=== PATIENT | female | born 1990 | race Two or more races ===

== ENCOUNTER 2025-01-26 08:13 | Emergency (ER) | payer BC, MEDICAID, OTHER ==
[~2025-01-26] VITALS: Ht 167.6 cm; Wt 102.5 kg
[2025-01-26 08:53] VITALS: TEMP 97.6
[2025-01-26 09:06] VITALS: PULSE 90; RESP 12; O2SAT 99
[2025-01-26 09:43] LABS: Urine Protein, UAD Negative (Negative)
--- NOTE | 2025-01-26 10:51 | ED.PDOC ---
SERVICE CENTER SPECIALIST HPI Comments HPI: Reneamirnamark 34 y.o female presents to the ED for a reevaluation of her . Patient reports approximately five weeks gestation, the patient was seen by her SERVICE CENTER SPECIALIST five days ago. The SERVICE CENTER SPECIALIST noted a normal exam but expressed suspicion of a possible ectopic , which could not be r/o at the time. The patient was consequently referred to ER ([facility]), where an evaluation included an HCG level and ultrasound. The US findings were too early to visualize a fetus. The patient has a history of ; her first child was conceived via fertility treatment. She is taking her prenatals visit was on 01/24/25: HCG level of 3700 Initial Vitals BP: 144/85 HR: 81 O2: 99% RA Temp: 98.7 F Past Medical History: Denies Past Surgical History: cholecystectomy Social History: Denies ETOH, smoking, and drug use. Allergies: Denies ENZENBACHER: HPI: Poor Historian. five weeks gestation presents to the emergency department to recheck level beta-hCG and pelvic ultrasound. She had one done two days ago at [facility]. Her beta-hCG levels was 3700. Ultrasound was nonconclusive patient has an established OB Gyne doctor already and is taking . Denies any other symptoms. REVIEW OF SYSTEMS: CONSTITUTIONAL: Denies acute: fever, diaphoresis, chills, generalized weakness. HEAD: Denies acute: headache, photophobia Eyes: Denies acute: Double vision, vision loss, eye pain, eye discharge. EARS: Denies acute: tinnitus, hearing loss, ear discharge, ear pain, THROAT: Denies acute: sore throat, swelling, difficulty swallowing , pain with swall owing, change in voice. NECK: Denies acute: neck pain, neck swelling, stiff neck. HEART: Denies acute : chest pain, palpitations, LUNGS: Denies acute: SOB, wheezing, cough, hemoptysis ABDOMEN: Denies acute: abdominal pain, Nausea, Vomiting, diarrhea, melena , hematemesis, hematochezia SKIN: Denies acute: rash, redness, lesions, itchiness. EXTREMITIES: Denies acute: calf pain, numbness, tingling, weakness, denies pain in extremity. Denies acute: Low back pain. Neuro: Denies acute: focal neurological deficit, motor or sensory focal neurological deficit, tremors, seizure like activity, confusion, dizziness, change in mental status, loss of bowel or bladder function, cauda equina like symptoms. : Denies acute: dysuria, hematuria, flank pain, increase in urinary frequency. PSYCH: Denies acute: hallucination, suicidal ideation, homicidal ideation. FEMALE: Denies acute: abnormal vaginal bleeding, foul odor, unusual discharge. PHYSICAL EXAM: General: -----no---acute distress, awake and alert. Head: normocephalic, atraumatic. Neck: supple, trachea is midline, no swelling. Throat: Normal phonation. Eyes:, no erythema, no purulent discharge, no proptosis, no icterus. Heart: regular rate, regular rhythm, no significant murmur appreciated. Lungs: no apparent respiratory distress, Able to speak in full sentences. No wheezing, no rhonchi, no crackles. No stridors Clear to auscultation bilaterally. Abdomen: non tender to palpation, non distended, soft, no guarding, no rebound, + bowel sounds. Neuro: Awake, Alert, oriented to name, self, situation, follows commands GCS=15. Speech is normal. Skin: no petechia, no purpura, no cyanosis, non-pale, not jaundice. Lower extremities: --no - Pitting edema no deformity, no focal swelling, no calf TTP. Makes eye contact. moves all four extremities. Face: no apparent facial droop. Ambulating in the ED independently. ED COURSE: DISCLAIMER: This medical document was created using an electronic medical record system with voice recognition software and computerized dictation system. Although this document has been carefully reviewed, there might still be some phonetic and typographical errors. Occasional wrong-word or "sound-alike" substitutions may have occurred due to the inherent limitations of voice recognition software. These areas are purely typographical due to imperfections of the software programs and do not reflect any compromise in the patient's medical care. Please read the chart carefully and recognize, using context, where these substitutions have occurred. Chief Complaint: Time Seen by MD: 10:40 Reviewed Notes: Medications, Allergies Allergies: Coded Allergies: NO KNOWN ALLERGIES (Unverified , 11/05/14) Home Meds Active Scripts Cephalexin Monohydrate (Cephalexin) 500 Mg Cap, 500 MG PO Q8HP PRN for 5 Days, #15 CAP Prov:MEETA CORDOBA DO 01/26/25 Information Source: Patient Mode of Arrival: Ambulatory Past Medical History PAST MEDICAL HISTORY: Denies Surgical History: Cholecystectomy PHYSICIAN SCRIBE History: No Pertinent PHYSICIAN SCRIBE History Social History Smoker: Non-Smoker Alcohol: Denies ETOH Use Drugs: Denies Drug Use Lives In: Home Was a procedure done? Was a procedure done?: No Differential Diagnosis (PHYSICIAN SCRIBE) Vaginal Bleeding: Other (Differential diagnosis includes but not limited to DU B, menorrhea, metromenorrhagia, neoplasm, coagulopathy,, trauma, miscarriage, placenta previa, placental abruption, ), N/A Comments Ectopic X-Ray, Labs, Meds, VS Vital Signs Date Time Temp Pulse Resp B/P (MAP) Pulse Ox O2 Delivery O2 Flow Rate FiO2 01/26/25 10:55 66 12 130/79 (96) 01/26/25 09:06 90 12 99 Room Air* 0 21 01/26/25 08:53 97.6 90 12 127/83 (98) 99 97.6 01/26/25 08:15 98.8 81 18 144/85 99 98.8 Lab Test 01/26/25 09:14 Range/Units Urine Color Light-yellow Yellow Urine Clarity Clear Clear Urine pH 6.0 5.0-9.0 Urine Specific [place] 1.007 1.001-1.035 Urine Protein Negative Negative Urine Ketones 1+ H Negative Urine Blood Negative Negative /uL Urine Nitrite Negative Negative Urine Bilirubin Negative Negative Urine Urobilinogen Normal Negative mg/dL Urine Leukocyte Esterase Negative Negative /uL Urine RBC 1 0 - 4 /hpf Urine Microscopic WBC < 1 0-5 /HPF Urine Squamous Epithelial Cells Few <5 /hpf Urine Bacteria Few H None Seen /hpf Urine Glucose Normal Normal mg/dL Urine Test Positive Negative Beta HCG, Quantitative 7013.0 H 1.5-4.2 mIU/mL [facility] [id number] [place] [id number] Ph: [phone] DIAGNOSTIC IMAGING Diagnostic Imaging Report : [id number] Signed PATIENT: FORREST NAGYACCT: [id number] UNIT: [id number] : 1990 LOC: ER ROOM / BED: / AGE / SEX: 34 / F ADM STATUS: REG ER SERVICE [id number] ORDERING PHYSICIAN: MEETA CORDOBA DO PROCEDURE(s): OB4US - OB ULTRASOUND COMP LESS 14WKS REASON: POSS ECTOPIC PREG. ORDER NUMBER(s): [id number], ACCESSION NUMBER(s): [id number] CLINICAL HISTORY: Possible ectopic . COMPARISON: None TECHNIQUE: Transvaginal and transabdominal grayscale sonographic imaging of the uterus and ovaries was performed, assisted by color Doppler technique. Duplex Doppler ultrasound of both ovaries was also performed. FINDINGS: The uterus measures 6.8 x 6.0 x 5.4 cm. There is an anechoic structure in the endometrium measuring up to 0.73 cm in diameter, possible gestational sac. No yolk sac or pole identified at this time. Possible arcuate or septate uterus, not well evaluated on this exam. Small amount of free fluid in the cul-de-sac. Right ovary measures 3.9 x 1.9 x 2.7 cm. Arterial and venous blood flow demonstrated. Left ovary measures 2.6 x 1.8 x 1.9 cm. Arterial and venous blood flow demonstrated. IMPRESSION: 1. Intrauterine gestational sac with no yolk sac or pole identified at this time. Correlate with clinical findings, serial beta HCG levels, and follow- up ultrasound recommended. 2. No ectopic visualized, although can not be completely excluded in the appropriate clinical setting. 3. Possible arcuate uterus or septate uterus, not well evaluated on this exam. ATED BY: SAI MCMAHON DO DICTATED DATE/TIME: 01/26/25 112 SIGNED BY: SAI MCMAHON DO SIGNED DATE/TIME: 01/26/251121 CC: Time of 1ST Reevaluation: 10:44 Reevaluation 1ST: Unchanged Patient Education/Counseling: Diagnosis, Treatment Family Education/Counseling: No Family Present Comments MDM: patient presented with the above HPI.---evaluation for ectopic ---workup was initiated. patient was found with the above mentioned diagnosis. the following medications were ordered: please refer to order lists of meds and tests obtained by myself Dr. Cordoba. Patient ED course and VS have been stabilized. Patient has been reassessed in the ED and remained in a stable condition. Pertinent incidental findings were discussed with the patient and/or family. Patient/family voices understanding and is agreeable with plan. Patient has been observed in the ED adequate length of time to insure improvement/stability. Escalation of care considered: Consideration of escalation to observation or admission Patient was DISCHARGED home in a stable condition. All the reports of any imaging studies that were ordered by myself were reviewed by myself. Departure 1 Departure Time of Disposition: 10:55 Impression: Primary Impression: Encounter for assessment for suspected ectopic Additional Impression: UTI in Disposition: HOME / SELF CARE / HOMELESS Condition: Stable Additional Instructions: Additional instructions: Please read all instructions provided in this packet carefully. You MUST follow-up with your primary care/family doctor in 1 to 2 days. If you are unable to see your primary care/family doctor, please return to our emergency room for re-assessment and re-evaluation in 1 to 2 days. Return to the emergency room here in our facility or to the nearest ER [facility] if your symptoms change or worsen. CONSULTATIONS: you MUST Follow-up for consultation as soon as possible with: ----OB Gyne doctor in 1-2 days. You MUST call the consultants office yourself to make an appointment. You may need to arrange that through your insurance and/or your primary/family doctor. If you are unable to see the unix consultant in 1 to 2 days, you must return to our emergency room (or any other ER of your choice) for re-assessment and re- evaluation. Adequate fluid hydration. Although you have been discharged from the Emergency Department, this does not mean that you have a "clean bill of health". No definitive diagnosis for your symptoms has been made today. It is possible that you are in the process of developing a serious illness. This is why you must return to the ED without fail if any new or worsening symptoms develop. Repeat beta-hCG levels in 48-72 hours. Repeat pelvic ultrasound in 4-5 days. 01/26/25 (9:14am) Beta HCG Quant: 3734 Below is a copy of your radiological report for follow up: [address] [address] Ph: [phone] DIAGNOSTIC IMAGING Diagnostic Imaging Report : [id number] Signed PATIENT: FORREST NAGY ACCT: [id number] UNIT: [id number] : 1990 LOC: ER ROOM / BED: / AGE / SEX: 34 / F ADM STATUS: REG ER SERVICE 0859 ORDERING PHYSICIAN: MEETA CORDOBA DO PROCEDURE(s): OB4US - OB ULTRASOUND COMP LESS 14WKS REASON: POSS ECTOPIC PREG. ORDER NUMBER(s): [id number], ACCESSION NUMBER(s): [id number] CLINICAL HISTORY: Possible ectopic . COMPARISON: None TECHNIQUE: Transvaginal and transabdominal grayscale sonographic imaging of the uterus and ovaries was performed, assisted by color Doppler technique. Duplex Doppler ultrasound of both ovaries was also performed. FINDINGS: The uterus measures 6.8 x 6.0 x 5.4 cm. There is an anechoic structure in the endometrium measuring up to 0.73 cm in diameter, possible gestational sac. No yolk sac or pole identified at this time. Possible arcuate or septate uterus, not well evaluated on this exam. Small amount of free fluid in the cul-de-sac. Right ovary measures 3.9 x 1.9 x 2.7 cm. Arterial and venous blood flow demonstrated. Left ovary measures 2.6 x 1.8 x 1.9 cm. Arterial and venous blood flow demonstrated. IMPRESSION: 1. Intrauterine gestational sac with no yolk sac or pole identified at this time. Correlate with clinical findings, serial beta HCG levels, and follow- up ultrasound recommended. 2. No ectopic visualized, although can not be completely excluded in the appropriate clinical setting. 3. Possible arcuate uterus or septate uterus, not well evaluated on this exam. ATED BY: SAI MCMAHON DO DICTATED DATE/TIME: 01/26/251121 SIGNED BY: SAI MCMAHON DO SIGNED DATE/TIME: 01/26/251121 CC: e-Prescriptions Cephalexin Monohydrate (Cephalexin) 500 Mg Cap 500 MG PO Q8HP PRN for 5 Days, #15 CAP Prov: MEETA CORDOBA DO 01/26/25 Discharged With: Self Critical Care Note Critical Care Time?: No I personally scribed for MEETA CORDOBA DO ([facility] on 01/26/25 at 10:51. Electronically submitted by Lynn Kruse ([facility]). I personally scribed for MEETA CORDOBA DO ([email or web address]) on 01/26/25 at 10:54. Electronically submitted by Lynn Kruse ([facility]). I personally scribed for MEETA CORDOBA DO ([email or web address]) on 01/26/25 at 10:58. Electronically submitted by Lynn Kruse ([facility]). I personally scribed for MEETA CORDOBA DO ([email or web address]) on 01/26/25 at 11:37. Electronically submitted by Lynn Kruse ([facility]). MEETA CORDOBA DO Jan 26, 2025 10:51
[2025-01-26 10:55] VITALS: BP 130/79; PULSE 66; RESP 12
--- NOTE | 2025-01-26 11:24 | DVH ---
CLINICAL HISTORY: Possible ectopic . COMPARISON: None TECHNIQUE: Transvaginal and transabdominal grayscale sonographic imaging of the uterus and ovaries wa s performed, assisted by color Doppler technique. Duplex Doppler ultrasound of both ovaries was also performed. FINDINGS: The uterus measures 6.8 x 6.0 x 5.4 cm. There is an anechoic structure in the endometrium m easuring up to 0.73 cm in diameter, possible gestational sac. No yolk sac or pole identified at this time. Possible arcuate or septate uterus, not well evaluated on this exam. Small amount of free fluid in the cul-de-sac. Right ovary measures 3.9 x 1.9 x 2.7 cm. Arterial and venous blood flow demonstrated. Left ovary measures 2.6 x 1.8 x 1.9 cm. Arterial and venous blood flow demonstrated. IMPRESSION: 1. Intrauterine gestational sac with no yolk sac or pole identified at this time. Correlate wit h clinical findings, serial beta HCG levels, and follow-up ultrasound recommended. 2. No ectopic visualized, although can not be completely excluded in the appropriate clinic al setting. 3. Possible arcuate uterus or septate uterus, not well evaluated on this exam.
[2025-01-26] MEDS ORDERED: CEPH500C PO (12:00)
== END 2025-01-26 11:45 | disposition home or self-care (01) ==
LOC: ER 08:16
DX: O23.41 Unspecified infection of urinary tract in pregnancy, first trimester (principal); O00.90 Unspecified ectopic pregnancy without intrauterine pregnancy; O09.10 Supervision of pregnancy with history of ectopic pregnancy, unspecified trimester; N39.0 Urinary tract infection, site not specified; Z03.72 Encounter for suspected placental problem ruled out; Z3A.01 Less than 8 weeks gestation of pregnancy; Z90.49 Acquired absence of other specified parts of digestive tract
CPT/HCPCS: 36415; 76801; 81001; 81025; 84702